=== PATIENT | female | born 1985 | race Caucasian/White ===

== ENCOUNTER 2017-09-12 21:29 | Emergency (ER) | payer MEDICAID ==
[~2017-09-12] VITALS: Ht 160 cm; Wt 54.4 kg
--- NOTE | 2017-09-12 21:44 | NUR ---
PT BIB [facility] WITH A C/O HEADACHE 07/31. PT STATED THAT SHE IS 1 MONTH . PT IS CRYING AN COVERING HER HEAD. PT REC'D AN ICE PACK FOR BEHIND HER HEAD. PT IS ON THE MONITOR AND CONTINUOUS PULSE OX.
--- NOTE | 2017-09-12 21:55 | NUR ---
PT REC'D 2 WARM BLANKETS. PT IS ON THE MONITOR AND CONTINUOUS PULSE OX. VSS.
[2017-09-12] MEDS ORDERED: ONDANSETRON HCL/PF 4 MG/2 ML VIAL ONE (22:14)
--- NOTE | 2017-09-12 22:24 | NUR ---
PT REC'D MEDICATION ORDERED.
[2017-09-12] MEDS ORDERED: ONDANSETRON HCL/PF 4 MG/2 ML VIAL IV ONE (22:30)
[2017-09-12] MEDS ORDERED: IV NS 0.9% 1,000 ML BAG IV ONE (22:30)
[2017-09-12] MEDS ORDERED: ACETAMINOPHEN ES 500 MG TABLET ONE (23:16)
[2017-09-12] MEDS ORDERED: ACETAMINOPHEN 325 MG TABLET PO ONE (23:30)
--- NOTE | 2017-09-12 23:40 | NUR ---
IV removed. Catheter intact and site benign. Pressure and 4x4 applied to site. No bleeding noted.Patient discharged to home in stable condition. Written and verbal after care instructions given. Patient verbalizes understanding of instruction AND RX. VSS. PT AMBULATED OUT WITH A STEADY GAIT.
[2017-09-12 23:42] VITALS: BP 121/63
== END 2017-09-12 23:43 | disposition home or self-care (01) ==
LOC: ER 21:30
DX: O26.891 Other specified pregnancy related conditions, first trimester (principal); G43.909 Migraine, unspecified, not intractable, without status migrainosus; Z3A.01 Less than 8 weeks gestation of pregnancy
CPT/HCPCS: 96361; 96374; 99284; A4606; J2405; J7030; Z7610